=== PATIENT | female | born 1965 | race Caucasian/White ===

== ENCOUNTER 2017-09-14 14:07 | Emergency (ER) | payer OTHER ==
[2017-09-14] MEDS ORDERED: DIPH,PERTUS(ACELL)TETVAC-LF 0.5 ML VIAL IM ONE (14:36)
--- NOTE | 2017-09-14 14:40 | ED ---
Fall HPI - General Chief Complaint: Fall Stated Complaint: Fall-[facility] Time Seen by Provider: 09/14/17 14:18 Source: patient Mode of arrival: ambulatory - History of Present Illness Initial Comments: This is a 52 year old female who presents with chief complaint of a fall which occurred earlier today. The patient states she tripped over a cord while at work and fell on her left knee and face. The patient states she scraped her forehead, but did not bleed from her mouth or nose. She states that most of her pain is in her left knee. The patient has a significant history of chronic knee pain in her right knee. She is not up to date on her tetanus vaccine. - Related Data Previous Rx's Medication Instructions Recorded Ibuprofen [Motrin] 600 mg PO Q8HR PRN #30 tab 09/14/17 Allergies Allergy/AdvReac Type Severity Reaction Status Date / Time No Known Allergies Allergy Verified 09/14/17 14:37 Review of Systems ROS Statement: Those systems with pertinent positive or pertinent negative responses have been documented in the HPI. ROS Other: All systems not noted in ROS Statement are negative. Past Medical History Past Medical History: No Reported History History of Any Multi-Drug Resistant Organisms: None Reported Additional Past Surgical History / Comment(s): cataract Past Psychological History: No Psychological Hx Reported Smoking Status: Never smoker Past Alcohol Use History: None Reported Past Drug Use History: None Reported General Exam Limitations: no limitations General appearance: alert, in no apparent distress Head exam: Present: atraumatic, normocephalic, normal inspection, other (There is an apparent abrasion on the forehead. The nose appears bruised and slightly edematous. No active bleeding.) Eye exam: Present: normal appearance, PERRL, EOMI. Absent: scleral icterus, conjunctival injection, periorbital swelling Neck exam: Present: normal inspection. Absent: tenderness, meningismus, lymphadenopathy Extremities exam: Present: other (The patient is unable to bend at the left knee , so ROM texting is difficult to perform. She is tender to palpation over the left patella and left popliteal region. Neurovascular remains intact.) Neurological exam: Present: alert, oriented X3, CN II-XII intact Psychiatric exam: Present: normal affect, normal mood Skin exam: Present: warm, dry, intact, normal color. Absent: rash Course Vital Signs 01/24/18 14:19 Temperature 98.7 F Pulse Rate 73 Respiratory 20 Rate Blood Pressure 141/88 O2 Sat by Pulse 97 Oximetry Medical Decision Making - Medical Decision Making This is a 52 year old female who presented to the ED with a chief complaint of a fall on the left knee and face. Nasal x-rays and left knee x-rays were reviewed and negative for acute fracture. She is being discharged home with a prescription for Ibuprofen 600mg and a knee immobilizer. She was instructed to follow-up with orthopedics for further evaluation. Disposition Clinical Impression: Fall, Nasal contusion, Left knee sprain, Contusion of left knee Disposition: HOME SELF-CARE Condition: Stable Additional Instructions: Please return to the Emergency Department if symptoms worsen or any other concerns. Prescriptions: Ibuprofen [Motrin] 600 mg PO Q8HR PRN #30 tab PRN Reason: Pain Referrals: Nonstaff,Physician [Primary Care Provider] - 1-2 days Time of Disposition: 15:37
--- NOTE | 2017-09-14 15:24 | XR ---
EXAMINATION TYPE: XR knee complete LT DATE OF EXAM: 09/14/2017 CLINICAL HISTORY: Left knee pain after fall injury today. TECHNIQUE: Three views of the left knee are obtained. COMPARISON: None. FINDINGS: Evaluation slightly suboptimal as patient was not completely extend for proper imaging. Th ere is no acute fracture/dislocation evident in left knee. The tri-compartment joint spaces appear w ithin normal limits. Increased density suprapatellar bursa is suggestive of moderate to large joint e ffusion. IMPRESSION: There is no acute fracture or dislocation in the left knee.
--- NOTE | 2017-09-14 15:25 | XR ---
EXAMINATION TYPE: XR nasal bone DATE OF EXAM: 09/14/2017 COMPARISON: NONE HISTORY: Fall injury today with pain and abrasions. TECHNIQUE: Complete nasal bone series with both lateral projections a frontal projection acquired. FINDINGS: There is no acute displaced fracture of the nasal bridge. Overlying soft tissue is unremark able. Nasal septum is noted deviated to left of midline. IMPRESSION: No acute displaced nasal bridge fracture identified.
[2017-09-14 15:57] VITALS: BP 132/78; PULSE 68; RESP 18; TEMP 97.8
== END 2017-09-14 15:52 | disposition home or self-care (01) ==
LOC: EC 14:07
DX: S83.92XA Sprain of unspecified site of left knee, initial encounter (principal); S00.33XA Contusion of nose, initial encounter; S00.81XA Abrasion of other part of head, initial encounter; Z23 Encounter for immunization; W18.09XA Striking against other object with subsequent fall, initial encounter; Y93.89 Activity, other specified; Y92.69 Other specified industrial and construction area as the place of occurrence of the external cause; Y99.0 Civilian activity done for income or pay
CPT/HCPCS: 70160; 73562; 90715; 99283; 90471; L1830

== ENCOUNTER → 2017-09-26 | Outpatient (CLI) | payer OTHER ==
--- NOTE | 2017-09-26 17:22 | US ---
EXAMINATION TYPE: US venous doppler duplex LE LT DATE OF EXAM: 09/26/2017 5:00 PM COMPARISON: NONE CLINICAL HISTORY: L Leg Pain M79.662. left Gastrocnemius Veins are dilated on MRI report; left leg f racture. SIDE PERFORMED: Left TECHNIQUE: The lower extremity deep venous system is examined utilizing real time linear array sonog dia with graded compression, doppler sonography and color-flow sonography. VESSELS IMAGED: Common Femoral Vein Deep Femoral Vein Greater Saphenous Vein * Femoral Vein Popliteal Vein Small Saphenous Vein * Proximal Calf Veins (* superficial vessels) Left Leg: Is positive for DVT in paired upper gastrocnemius veins as are non compressible with inter nal echoes noted and no color flow is seen at non compressible portion. IMPRESSION: Acute deep venous thrombosis within the calf veins of the upper gastrocnemius on the outs shyla MRI report. Remainder of the left lower extremity deep venous system is patent. A Yellow message has been communicated to Foreign Rodriguez DO via the [employer] system on 09/26/2017 5:19 PM, Message ID [id number].
== END | disposition home or self-care (01) ==
LOC: RADUSMAIN 16:29
PROVIDERS: ATTEND Emergency Medicine
DX: I82.4Z2 Acute embolism and thrombosis of unspecified deep veins of left distal lower extremity (principal)

== ENCOUNTER 2017-09-27 10:36 | Emergency (ER) | payer OTHER ==
[2017-09-27 10:49] VITALS: RESP 18; TEMP 97.9
[2017-09-27] MEDS ORDERED: RIVAROXABAN 15 MG TAB PO STA (12:49)
--- NOTE | 2017-09-27 12:56 | ED ---
General Adult HPI - General Chief complaint: Extremity Problem,Nontraumatic Stated complaint: Leg pain-[facility] Time Seen by Provider: 09/27/17 12:18 Source: patient, RN notes reviewed Mode of arrival: ambulatory Limitations: no limitations - History of Present Illness Initial comments: Patient is a 52-year-old female who presents emergency room today with a chief complaint of positive also for blood clot. Patient does admit that she had a fall at work a week ago. She states that she was diagnosed with a fracture in the left knee. She has been following up with orthopedics. She states that she did have an MRI today he picked up what appeared to be a blood clot. Patient did have some just vague performed which did show a blood clot in the left calf. Patient denies any symptoms. Patient denies any shortness breath. Denies any other complaints or associated symptoms. Denies any history of blood clots. Patient denies any recent fever, chills, shortness of breath, chest pain, back pain, abdominal pain, nausea or vomiting, numbness or tingling , dysuria or hematuria, constipation or diarrhea, headaches or visual changes, or any other complaints. - Related Data Previous Rx's Medication Instructions Recorded Ibuprofen [Motrin] 600 mg PO Q8HR PRN #30 tab 09/14/17 Rivaroxaban [Xarelto] 15 mg PO BID #42 tab 09/27/17 Allergies Allergy/AdvReac Type Severity Reaction Status Date / Time No Known Allergies Allergy Verified 09/27/17 12:17 Review of Systems ROS Statement: Those systems with pertinent positive or pertinent negative responses have been documented in the HPI. ROS Other: All systems not noted in ROS Statement are negative. Past Medical History Past Medical History: Deep Vein Thrombosis (DVT) History of Any Multi-Drug Resistant Organisms: None Reported Additional Past Surgical History / Comment(s): cataract Past Psychological History: No Psychological Hx Reported Smoking Status: Never smoker Past Alcohol Use History: None Reported Past Drug Use History: None Reported General Exam - General Exam Comments Initial Comments: General: The patient is awake and alert, in no distress, and does not appear acutely ill. Eye: Pupils are equal, round and reactive to light, extra-ocular movements are intact. No nystagmus. There is normal conjunctiva bilaterally. No signs of icterus. Ears, nose, mouth and throat: There are moist mucous membranes and no oral lesions. Neck: The neck is supple, there is no tenderness or JVD. Cardiovascular: There is a regular rate and rhythm. No murmur, rub or gallop is appreciated. Respiratory: Lungs are clear to auscultation, respirations are non-labored, breath sounds are equal. No wheezes, stridor, rales, or rhonchi Musculoskeletal: Normal ROM. Strength 5/5. Sensation intact. Pulses equal bilaterally 2+. Neurological: A&O x 3. CN II-XII intact, There are no obvious motor or sensory deficits. Coordination appears grossly intact. Speech is normal. Skin: Skin is warm and dry and no rashes or lesions are noted. Psychiatric: Cooperative, appropriate mood & affect, normal judgment. Limitations: no limitations Course Vital Signs 09/27/17 09/27/17 10:47 12:17 Temperature 97.9 F Pulse Rate 105 H 89 Respiratory 18 18 Rate Blood Pressure 138/84 151/81 O2 Sat by Pulse 99 97 Oximetry Medical Decision Making - Medical Decision Making Patient given first dose of Zaroxolyn emergency room. She does have small blood clot in the left. She is asymptomatic otherwise. No shortness of breath. Vitals are stable. Patient will be given a prescription to go home with. I did confirm with pharmacy that they have a starter pack of this rales. Was discussed with patient that it from she does not cover this prescription that she may need to be bridged with another medication. She is advised to return if any symptoms increase worsen or for any other concerns. Disposition Clinical Impression: DVT (deep venous thrombosis) Disposition: HOME SELF-CARE Condition: Good Instructions: Deep Venous Thrombosis (ED) Additional Instructions: Please use medication as discussed. Please follow-up with the family doctor or employee health for further evaluation and possible need to have medication changed if insurance does not cover it. Please return to emergency room if the symptoms increase or worsen or for any other concerns. Prescriptions: Rivaroxaban [Xarelto] 15 mg PO BID #42 tab Referrals: Nonstaff,Physician [Primary Care Provider] - 1-2 days Time of Disposition: 12:52
[2017-09-27 13:16] VITALS: BP 132/79; PULSE 83
== END 2017-09-27 13:22 | disposition home or self-care (01) ==
LOC: EC 10:36
DX: I82.402 Acute embolism and thrombosis of unspecified deep veins of left lower extremity (principal)
CPT/HCPCS: 99283